=== PATIENT | male | born 1965 | race Two or more races ===

== ENCOUNTER 2017-04-19 19:40 | Emergency (ER) | payer OTHER ==
[~2017-04-19] VITALS: Ht 172.7 cm; Wt 79.4 kg
[2017-04-19] MEDS ORDERED: TERA2CAP45 PO (20:08)
[2017-04-19] MEDS ORDERED: TRAZ100T2 PO (20:08)
[2017-04-19] MEDS ORDERED: SODIUM CHLORIDE 0.9% 500 ML IVB ONE (21:03)
[2017-04-19] MEDS ORDERED: PROCHLORPERAZINE EDISYLATE 5 MG/ML 2ML VIAL IV ONE (21:15)
[2017-04-19 21:36] LABS: Basophils # (auto) 0.1 uL; Basophils % (auto) 0.4 % (0.0-2.0); Eosinophils # (auto) 0.2 uL; Eosinophils % (auto) 1.5 % (0.0-7.0); Hematocrit 41.9 % (41.0-53.0); Hemoglobin 14.9 g/dL (13.5-17.5); Lymphocytes # (auto) 5.2 uL; Mean Corpuscular Hemoglobin 33.8 pg (28.0-32.0); Mean Corpuscular Hgb Conc. 35.7 g/dL (32.0-36.0); Mean Corpuscular Volume 94.7 fL (80.0-100.0); Monocytes # (auto) 1.2 uL; Monocytes % (auto) 9.1 % (0.0-12.0); Neutrophils # (auto) 6.4 uL; Nucleated Red Blood Cells % 0.1 %; Platelet Count (auto) 202 10^3/uL (140-450); Red Blood Cells 4.42 10^6/uL (4.5-5.90); Red Cell Distribution Width 12.8 % (11.8-14.3); White Blood Cell 13.1 10^3/uL (4.4-10.8)
[2017-04-19 21:53] LABS: Urine WBC None Seen /hpf (0 - 3)
[2017-04-19 21:54] LABS: Albumin 3.8 g/dL (3.4-5.0); Anion Gap 12 (5-15); BUN/Creatinine Ratio 16.8; Blood Alcohol < 3.0 mg/dL (0-5); Blood Urea Nitrogen 16 mg/dL (7-18); Calcium 8.7 mg/dL (8.5-10.1); Carbon Dioxide 22 mmol/L (21-32); Chloride 106 mmol/L (98-107); GFR African American 107 mL/min; GFR Non-African American 88 mL/min; Glucose 99 mg/dL (74-106); Potassium 3.1 mmol/L (3.5-5.1); Sodium 140 mmol/L (136-145)
[2017-04-19 21:59] LABS: Alanine Aminotransferase 57 U/L (16-61); Alkaline Phosphatase 71 U/L (45-117); Aspartate Aminotransferase 33 U/L (15-37); Bilirubin, Total 0.3 mg/dL (0.2-1.0)
[2017-04-19 22:09] LABS: Urine Amorphous Crystal FEW /hpf (None Seen); Urine Bacteria NONE SEEN /hpf (None Seen); Urine Blood Negative /uL (Negative); Urine Mucus FEW (None Seen); Urine Specific Gravity 1.022 (1.001-1.035)
[2017-04-19] MEDS ORDERED: POTASSIUM CHL 20MEQ/100ML 100 ML IV ONE (22:15)
[2017-04-19 22:17] LABS: Alcohol, Urine < 3.0 mg/dL (0-5); Amphetamine Screen, Urine NEGATIVE (NEGATIVE); Barbiturate Scree,Urine NEGATIVE (NEGATIVE); Benzodiazephine Screen, Urine NEGATIVE (NEGATIVE); Cannabinoid Screen, Urine NEGATIVE (NEGATIVE); Cocaine Screen, Urine NEGATIVE (NEGATIVE); Opiate Scree,Urine NEGATIVE (NEGATIVE); Phencyclidine Screen, Urine NEGATIVE (NEGATIVE)
[2017-04-19] MEDS ORDERED: HYDROmorphone HCL 2 MG/ML VL IV ONE (22:30)
[2017-04-19] MEDS ORDERED: HYDROmorphone HCL 2 MG/ML VL ONE (22:40)
[2017-04-19] MEDS ORDERED: CIPROFLOXACIN HCL 500 MG TAB PO ONE (23:30)
[2017-04-19] MEDS ORDERED: metroNIDAZOLE 500MG/100ML 100 ML IV ONE (23:30)
[2017-04-19] MEDS ORDERED: cloNIDine HCL 0.1 MG TAB ONE (23:49)
[2017-04-20] MEDS ORDERED: cloNIDine HCL 0.1 MG TAB PO ONE
[2017-04-20 01:15] VITALS: BP 145/97
[2017-04-20] MEDS ORDERED: ONDANSETRON ODT 4 MG TAB PO ONE ×2 (01:35→01:45)
[2017-04-20] MEDS ORDERED: MECLIZINE HCL 25 MG TAB ONE (01:35)
[2017-04-20] MEDS ORDERED: MECLIZINE HCL 25 MG TAB PO ONE (01:45)
== END 2017-04-20 01:45 | disposition home or self-care (01) ==
LOC: ER 19:40 → EDBD 19:40 → ER 04-20 01:45
DX: I10 Essential (primary) hypertension (principal); R11.10 Vomiting, unspecified; Z98.890 Other specified postprocedural states
CPT/HCPCS: 36415; 70450; 74176; 80053; 80307; 80320; 81001; 83735; 84484; 85025; 94761; 96361; 96365; 96366; 96375; 99285; J0780; J1170; J3480; J3490; J8597; Q0162; 93005

== ENCOUNTER 2017-04-20 21:16 | Emergency (ER) | payer OTHER ==
[~2017-04-20] VITALS: Ht 180.3 cm; Wt 102.1 kg
[~2017-04-20 21:16] MED LIST: TERA2CAP45 PO; TRAZ100T2 PO
[2017-04-20 21:29] VITALS: BP 174/105
== END 2017-04-20 21:47 | disposition left against medical advice (07) ==
LOC: ER 21:16 → EDBD 21:16 → ER 21:47
DX: R42 Dizziness and giddiness (principal); R11.2 Nausea with vomiting, unspecified; Z53.21 Procedure and treatment not carried out due to patient leaving prior to being seen by health care provider